=== PATIENT | male | born 1995 | race Caucasian/White ===

== ENCOUNTER 2017-07-20 15:57 | Emergency (ER) | payer MEDICAID, OTHER ==
[~2017-07-20] VITALS: Ht 182.9 cm; Wt 141.0 kg
[~2017-07-20 15:57] MED LIST: AUGM500T7 PO; HUMA100I SC; LANTUS2P SC; MMW SS; SYNT75TA PO
[2017-07-20 15:59] VITALS: BP 141/86; PULSE 108; RESP 20; TEMP 97.9; O2SAT 96
[2017-07-20] MEDS ORDERED: guaiFENesin/CODEINE SYRUP 200 MG/20 MG/10 ML CUP PO STA (16:14)
[2017-07-20] MEDS ORDERED: SODIUM CHLOR 0.9% 1000 ML INJ 1,000 ML IV ONE ×2 (16:15)
[2017-07-20] MEDS ORDERED: SODIUM CHLORIDE 0.9% FLUSH 10 ML FLUSH IVF PRN (16:15)
[2017-07-20] MEDS ORDERED: methylPREDNISolone SOD SUCC 125 MG/2 ML VIAL IV PUSH ONE (16:15)
[2017-07-20] MEDS ORDERED: RESP: ALBUTEROL 2.5 MG/3 ML NEB (SCH) INH ONE (16:15)
[2017-07-20] MEDS ORDERED: ZITH250T PO (16:17)
[2017-07-20] MEDS ORDERED: LEVEMIR SQ (16:17)
[2017-07-20] MEDS ORDERED: SYNT88TA PO (16:17)
[2017-07-20] MEDS ORDERED: HUMALOG SQ (16:17)
--- NOTE | 2017-07-20 16:26 | PD ---
HPI Chief Complaint: Cold / Flu Symptoms Time Seen by Provider: 16:14 Travel History International Travel<30 days: No Contact w/Intl Traveler<30days: No Traveled to known affect area: No History of Present Illness HPI 21-year-old male complains of cough for about a week. He started azithromycin 4 days prior. Minimal benefit conferred. Insomnia secondary to frequent cough reported. Fever reported. [id number] NyQuil not effective for cough control and insomnia. Multiple sick contacts reported. PFSH Past Medical History Asthma: No Blood Disorders: No Heart Rhythm Problems: No Cystic Fibrosis: No Developmental Delay: No Diabetes: Yes Patient Takes Glucophage: No Diminished Hearing: No Hypertension: No Immunizations Current: Yes Seizures: No Sleep Apnea: No Thyroid Disease: Yes Tetanus Vaccination: Unknown Influenza Vaccination: No Past Surgical History Oral Surgery: Yes (MARK) Social History Alcohol Use: No Tobacco Use: No Substance Use: No Allergies-Medications (Allergen,Severity, Reaction): Coded Allergies: No Known Allergies (Verified Adverse Reaction, Unknown, 07/20/17) Reported Meds & Prescriptions Reported Meds & Active Scripts Active Guaifenesin-Codeine Liq 100-10 Mg/5 Ml Soln 10 Ml PO Q6H PRN 5 Days Prednisone 20 Mg Tab 40 Mg PO DAILY 4 Days Take 40 mg (2 tablets) daily for 5 days Proair Hfa 8.5 GM Inh (Albuterol Sulfate) 90 Mcg/Act Aer 2 Puff INH Q4-6H PRN 108 mcg/actuation Reported Humalog Inj (Insulin Human Lispro) 1,000 Unit/10 Ml Vial 2-12 Units SQ ACHS PRN Max dose at bedtime:( )units; sugars < 70,(0)units; sugars 150-199,(2)units; sugars 200-249,(4)units; sugars 250-299,(7)units; sugars 300-349,(10)units; sugars more than 349,(12)units. Levemir Inj (Insulin Detemir) 1,000 unit/ 10 ML Vial 26 Units SQ HS Do not mix with any other Insulin. Zithromax (Azithromycin) 250 Mg Tab 250 Mg PO DAILY Synthroid (Levothyroxine Sodium) 88 Mcg Tab 88 Mcg PO DAILY Review of Systems Except as stated in HPI: all other systems reviewed are Neg General / Constitutional: No: Fever Physical Exam Narrative GENERAL: 21 yo M, WNWD, frequent cough Vital Signs Date Time Temp Pulse Resp B/P (MAP) Pulse Ox O2 Delivery O2 Flow Rate FiO2 07/20/17 15:59 97.9 108 20 141/86 (104) 96 SKIN: Warm and dry. HEAD: Atraumatic. Normocephalic. EYES: Pupils equal and round. No scleral icterus. No injection or drainage. ENT: No nasal bleeding or discharge. Mucous membranes pink and moist. NECK: Trachea midline. No JVD. CARDIOVASCULAR: Tachycardia to about 120 regular rhythm RESPIRATORY: Frequent cough. The lungs are clear. GASTROINTESTINAL: Abdomen soft, non-tender, nondistended. Hepatic and splenic margins not palpable. MUSCULOSKELETAL: Extremities without clubbing, cyanosis, or edema. No obvious deformities. NEUROLOGICAL: Awake and alert. No obvious cranial nerve deficits. Motor grossly within normal limits. Five out of 5 muscle strength in the arms and legs. Normal speech. PSYCHIATRIC: Appropriate mood and affect; insight and judgment normal. Data Data Last Documented VS Vital Signs Date Time Temp Pulse Resp B/P (MAP) Pulse Ox O2 Delivery O2 Flow Rate FiO2 07/20/17 17:59 90 16 149/80 (103) 97 Room Air 07/20/17 15:59 97.9 Vital signs reviewed Orders Orders Basic Metabolic Panel (Bmp) (07/20/17 16:14) Complete Blood Count With Diff (07/20/17 16:14) Influenzae A/B Antigen (07/20/17 16:14) Chest, Single Ap (07/20/17 16:14) Ecg Monitoring (07/20/17 16:14) Iv Access Insert/Monitor (07/20/17 16:14) Oximetry (07/20/17 16:14) Sodium Chloride 0.9% Flush (Ns Flush) (07/20/17 16:15) Albuterol Neb (Albuterol Neb) (07/20/17 16:15) Methylprednisolone So Succ Inj (Solumedr (07/20/17 16:15) Guaifen-Cod 200-20 Mg/10ml Liq (Robituss (07/20/17 16:14) Sodium Chlor 0.9% 1000 Ml Inj (Ns 1000 M (07/20/17 16:15) Sodium Chlor 0.9% 1000 Ml Inj (Ns 1000 M (07/20/17 16:15) Ed Discharge Order (07/20/17 17:50) Labs Laboratory Tests Test 07/20/17 16:30 White Blood Count 5.4 TH/MM3 Red Blood Count 5.40 MIL/MM3 Hemoglobin 15.6 GM/DL Hematocrit 46.9 % Mean Corpuscular Volume 86.7 FL Mean Corpuscular Hemoglobin 28.9 PG Mean Corpuscular Hemoglobin Concent 33.3 % Red Cell Distribution Width 12.0 % Platelet Count 281 TH/MM3 Mean Platelet Volume 8.6 FL Neutrophils (%) (Auto) 65.0 % Lymphocytes (%) (Auto) 26.3 % Monocytes (%) (Auto) 7.3 % Eosinophils (%) (Auto) 0.7 % Basophils (%) (Auto) 0.7 % Neutrophils # (Auto) 3.6 TH/MM3 Lymphocytes # (Auto) 1.4 TH/MM3 Monocytes # (Auto) 0.4 TH/MM3 Eosinophils # (Auto) 0.0 TH/MM3 Basophils # (Auto) 0.0 TH/MM3 CBC Comment DIFF FINAL Differential Comment Blood Urea Nitrogen 18 MG/DL Creatinine 1.10 MG/DL Random Glucose 229 MG/DL Calcium Level 8.5 MG/DL Sodium Level 137 MEQ/L Potassium Level 3.6 MEQ/L Chloride Level 98 MEQ/L Carbon Dioxide Level 31.0 MEQ/L Anion Gap 8 MEQ/L Estimat Glomerular Filtration Rate 85 ML/MIN MDM Medical Decision Making Medical Screen Exam Complete: Yes Emergency Medical Condition: Yes Medical Record Reviewed: Yes Differential Diagnosis Pneumonia, influenza, bronchitis Narrative Course CBC & BMP Diagram 07/20/17 16:30 Calcium Level 8.5 Last Impressions Chest X-Ray 07/20/17 1614 Signed Impressions: Service Date/Time: Thursday, July 20, 2017 16:46 - CONCLUSION: No acute disease. Marc Sevilla MD Patient received 2 L IV fluids as well as albuterol inhaler and Solu-Medrol. He reports feeling much better at the time of reassessment, about 5:30 PM. Scripts as below. Expected course discussed. Return precautions discussed. Side effects of steroid use discussed. Heart rate decreased to the 90s. There was significant improvement after the albuterol inhaler. Diagnosis Primary Impression: URI (upper respiratory infection) Qualified Codes: J06.9 - Acute upper respiratory infection, unspecified Med/Other Pt SpecificInfo: Prescription(s) given Scripts Guaifenesin-Codeine Liq (Guaifenesin-Codeine Liq) 100-10 Mg/5 Ml Soln 10 ML PO Q6H Y for COUGH for 5 Days, #1 BOTTLE 0 Refills Prov: Perry Medellin MD 07/20/17 Prednisone (Prednisone) 20 Mg Tab 40 MG PO DAILY for 4 Days, #8 TAB 0 Refills Take 40 mg (2 tablets) daily for 5 days Prov: Perry Medellin MD 07/20/17 Albuterol 8.5 GM Inh (Proair Hfa 8.5 GM Inh) 90 Mcg/Act Aer 2 PUFF INH Q4-6H Y for COUGH, #1 INHALER 0 Refills 108 mcg/actuation Prov: Perry Medellin MD 07/20/17 Disposition: 01 DISCHARGE HOME Condition: Stable Perry Medellin MD Jul 20, 2017 16:26
[2017-07-20 16:36] VITALS: O2SAT 96
[2017-07-20 16:42] LABS: AUTOMATED NEUTROPHIL # 3.6 TH/MM3 (1.8-7.7); BASOPHIL % 0.7 % (0.0-2.0); EOSINOPHIL % 0.7 % (0.0-4.0); HEMATOCRIT 46.9 % (39.0-51.0); HEMOGLOBIN 15.6 GM/DL (13.0-17.0); LYMPH % 26.3 % (9.0-44.0); LYMPHOCYTE # 1.4 TH/MM3 (1.0-4.8); MEAN CELL VOLUME 86.7 FL (80.0-100.0); MEAN CORPUSCULAR HEMOGLOBIN 28.9 PG (27.0-34.0); MEAN CORPUSCULAR HGB CONC 33.3 % (32.0-36.0); MEAN PLATELET VOLUME 8.6 FL (7.0-11.0); MONO % 7.3 % (0.0-8.0); MONOCYTE # 0.4 TH/MM3 (0-0.9); PLATELET COUNT 281 TH/MM3 (150-450); WHITE BLOOD COUNT 5.4 TH/MM3 (4.0-11.0)
[2017-07-20] MEDS ORDERED: ALBUAER3 INH (16:42)
[2017-07-20] MEDS ORDERED: PRED20 PO (16:42)
[2017-07-20] MEDS ORDERED: GUAI100S5 PO (16:42)
[2017-07-20 16:52] LABS: CALCIUM 8.5 MG/DL (8.5-10.1)
[2017-07-20 16:56] LABS: CREATININE 1.1 MG/DL (0.60-1.30)
--- NOTE | 2017-07-20 17:24 | RADRPT ---
EXAM DATE/TIME: 07/20/2017 16:46 [facility] COMPARISON: No previous studies available for comparison. INDICATIONS : Walking pneumonia- Congestion, chest pain, shortness of breath, and coughing. MEDICAL HISTORY : None. SURGICAL HISTORY : None. ENCOUNTER: Initial ACUITY: 4 - 6 days PAIN SCORE: 5/10 LOCATION: Left cranial FINDINGS: A single view of the chest demonstrates the lungs to be symmetrically aerated without evidence of mas s, infiltrate or effusion. The cardiomediastinal contours are unremarkable. Osseous structures are intact. CONCLUSION: No acute disease. Marc Sevilla MD on July 20, 2017 at 17:22 Board Certified Radiologist. This report was verified electronically.
[2017-07-20 17:59] VITALS: BP 149/80; PULSE 90; RESP 16; O2SAT 97
== END 2017-07-20 18:23 | disposition home or self-care (01) ==
LOC: PHED 15:57
DX: J06.9 Acute upper respiratory infection, unspecified (principal); R05 Cough; R50.9 Fever, unspecified; G47.00 Insomnia, unspecified; E11.9 Type 2 diabetes mellitus without complications; E07.9 Disorder of thyroid, unspecified; Z79.4 Long term (current) use of insulin
CPT/HCPCS: 71045; 80048; 85025; 87804; 94664; 96361; 96374; 99284; J2930; J7030; J7613